=== PATIENT | female | born 1935 | race Caucasian/White ===

== ENCOUNTER 2024-02-03 14:43 | Emergency (ER) | payer OTHER, SELFPAY ==
[2024-02-03 14:50] VITALS: BP 162/80
--- NOTE | 2024-02-03 17:15 | ED.GENMED ---
History of Present Illness
General
Chief Complaint: Fall
Source: patient
Time Seen by Provider: 02/03/24 16:44
History of Present Illness
History of Present Illness:
88-year-old female presents to the emergency room for evaluation of a head injury. Patient states she was trying to sit down into her wheelchair and did not realize she had not got close enough to it. She sat on the edge and it slipped out from
behind her and she struck the back of her head. No loss of consciousness. Patient does take Eliquis. She did have what seemed to be a lot of bleeding from the back of her scalp. She offers no other complaints.
Phy Exam
Physical Exam
Physical Exam:
General: Awake, Alert, Oriented X3. No acute distress.
Vitals: unremarkable
Head: Approximately 0.6 mm laceration posterior scalp, dried blood about the hair, no active bleeding at this time.
Eyes: Pupils equal, EOMI
Throat: Airway intact, no exudates
Neck: Trachea midline, no pain to palpation along the cervical spine
Lungs: Clear and equal b/l
Heart: Regular rate, no murmurs
Abd: Soft, Nontender, No pulsatile mass
Neuro: Cranial nerves intact, muscle strength equal bilaterally, cerebellar exam normal
Skin: Warm, dry, no rash
Extremities: pulses equal b/l, no edema
Course
Orders/Labs/Results
Orders:
Orders
02/03/24 14:58
CT Head W/o Iv Contrast Urgent
Comment:
Reason For Exam: fall, posterior head strike, on eliquis
Vital Signs
Initial and Last Documented VS:
Initial Vital Signs
Temp Pulse Resp BP Pulse Ox
97.9 F 65 18 162/80 95
02/03/24 14:50 02/03/24 14:50 02/03/24 14:50 02/03/24 14:50 02/03/24 14:50
Last Documented Vital Signs
Temp Pulse Resp BP Pulse Ox
97.9 F 65 18 162/80 95
02/03/24 14:50 02/03/24 14:50 02/03/24 14:50 02/03/24 14:50 02/03/24 14:50
MDM/Problems Addressed
Differential Diagnosis Includes:
Subdural, subarachnoid, scalp contusion, laceration
MDM/Problems Addressed:
CT shows no acute intracranial abnormality. The scalp laceration was closed with 1 staple. Boerne removed in 1 week
*Radiology
Radiology exam reviewed: radiology read reviewed
*Pulse Oximetry
Patient hypoxic: no
*Critical Care Note
Total Time (30-74mins, 75-104mins- exclusive of procedures): Not Applicable
ED Attending Note
-
Portions of this chart may have been created with voice recognition software.� Occasional wrong word or��sound alike� substitutions may have occurred due to the inherent limitations of voice recognition software.
Discharge Plan
Departure
Patient Disposition: Home (Routine Discharge)
Date of Disposition: 02/03/24
Time of Disposition: 17:15
Patient with high blood pressure during this ER visit?: Yes
Condition: Good
Discharge Problem:
Head injury, Laceration of scalp
Instructions: Head Injury in Adults (DC), Laceration Repair With Boerne (DC), Preventing falls in adults
Referrals:
Briana Fernandez MD [Family Provider] -
Activity Restrictions/Additional Instructions:
Staple should be removed on one week
Interventions
Interventions:
*Risk Screen - Suicide Last Done: 02/03/24 14:50
*General Assessment Last Done: 02/03/24 14:50
*Neglect/Abuse Screening Last Done: 02/03/24 14:50
ED- Fall Risk Assessment Last Done: 02/03/24 15:46
ED-Musculoskeletal Assessment Last Done: 02/03/24 15:46
ED- Neurological Assessment Last Done: 02/03/24 15:46
ED-Skin Assessment Last Done: 02/03/24 15:46
Discharge Date and Time
Print Language: [id number]
== END 2024-02-03 17:29 | disposition home or self-care (01) ==
LOC: EMR 14:43
PROVIDERS: EMERGENCY PHYSICIAN Emergency Medicine; FAMILY PHYSICIAN Family Medicine
DX: S09.90XA Unspecified injury of head, initial encounter (principal); S01.01XA Laceration without foreign body of scalp, initial encounter; W19.XXXA Unspecified fall, initial encounter; Z79.01 Long term (current) use of anticoagulants
CPT/HCPCS: 99284; 70450